=== PATIENT | male | born 1985 | race Two or more races ===

== ENCOUNTER 2019-03-20 23:28 | Emergency (ER) | payer OTHER ==
--- OUTSIDE RECORDS SUMMARY | 2019-03-20 23:49 | XMS REPORT | Continuity of Care Document ---
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 Problems Description No Information Available Social History Type Date Description Comments Sex Unknown Allergies, Adverse Reactions, Alerts Description No Information Available Medications Description No Information Available Immunizations Description No Information Available Vital Signs Description No Information Available Results Description No Information Available Procedures Description No Information Available Medical Devices Description No Information Available Encounters Description No Information Available Assessments Description No Information Available Plan of Treatment Future Appointment(s):04/09/2019 8:15 am - Magaly Howard MD at [facility] Functional Status Description No Information Available Mental Status Description No Information Available Referrals Description No Information Available
[2019-03-21 00:10] LABS: ABS Eosinophils 0.4 10^3/ul (0-0.6); ABS Lymphocytes 1.9 10^3/ul (1.0-4.8); ABS Monocytes 0.6 10^3/ul (0-0.8); ABS Neutrophils 7.6 10^3/ul (1.5-7.7); Eosinophil % 3.8 %; Hematocrit 48 % (42-52); Hemoglobin 16.6 g/dL (14.0-18.0); Lymphocyte % 17.6 %; Mean Corpuscular HGB Conc 34 g/dL (31-36); Mean Corpuscular Hemoglobin 30 pg (27-31); Mean Corpuscular Volume 88 fL (80-94); Mean Platelet Volume 8.3 fL (7.4-10.4); Nucleated Red Blood Cells % 0.1; Platelet Count 209 10^3/uL (150-450); Red Blood Count 5.48 10^6 /uL (4.18-5.48); Red Cell Distribution Width 13 % (10-15); White Blood Count 10.6 10^3/uL (3.5-10.8)
[2019-03-21 00:17] LABS: Urine Appearance Cloudy; Urine Bacteria Absent (Absent); Urine Bilirubin Negative (Negative); Urine Blood 3+ (Negative); Urine Glucose Negative (Negative); Urine Ketones Negative (Negative); Urine Nitrite Negative (Negative); Urine Protein 2+(100 mg/dL) (Negative); Urine Red Blood Cell 3+(>10/hpf) (Absent); Urine Specific Gravity 1.013 (1.010-1.030); Urine Urobilinogen Negative (Negative); Urine White Blood Cell 3+(>20/hpf) (Absent)
[2019-03-21 00:36] LABS: Albumin 4.9 g/dL (3.2-5.2); Calcium 9.8 mg/dL (8.6-10.3); Total Bilirubin 0.7 mg/dL (0.2-1.0)
[2019-03-21 00:42] LABS: Urine Color Red
[2019-03-21 00:42] LABS: Albumin/Globulin Ratio 1.7 (1-3); BUN/Creatinine Ratio 14.6 (8-20); EGFR African American 100.6 (>60); EGFR Non-African American 83.2 (>60); Globulin 2.9 g/dL (2-4); Total Protein 7.8 g/dL (6.4-8.9)
[2019-03-21 01:04] LABS: Potassium 3.8 mmol/L (3.5-5.0)
[2019-03-21] MEDS ORDERED: Sulfamethox/Trimethoprim DS 800/160* TAB PO ONE (01:20)
--- NOTE | 2019-03-21 01:24 | ED ---
Complaint/Male - History of Current Complaint Chief Complaint: EDUrogenitalProblems Time Seen by Provider: 03/21/19 00:52 - Allergies/Home Medications Allergies/Adverse Reactions: Allergies Allergy/AdvReac Type Severity Reaction Status Date / Time No Known Allergies Allergy Verified 03/20/19 23:37 PMH/Surg Hx/FS Hx/Imm Hx Infectious Disease History: No Infectious Disease History: Denies: Traveled Outside the [place] in Last 30 Days - Social History Alcohol Use: None Substance Use Type: Reports: None Smoking Status (MU): Never Smoked Tobacco Physical Exam Vital Signs On Initial Exam: Initial Vitals Temp Pulse Resp BP Pulse Ox 97.9 F 92 16 142/98 99 03/20/19 23:34 03/20/19 23:34 03/20/19 23:34 03/20/19 23:34 03/20/19 23:34 Diagnostics - Vital Signs Vital Signs Temp Pulse Resp BP Pulse Ox 03/20/19 23:34 97.9 F 92 16 142/98 99 - Laboratory Lab Results: Lab Results 03/20/19 03/21/19 03/21/19 Range/Units 23:50 00:05 00:05 WBC 10.6 (3.5-10.8) 10^3/uL RBC 5.48 (4.18-5.48) 10^6 /uL Hgb 16.6 (14.0-18.0) g/dL Hct 48 (42-52) % MCV 88 (80-94) fL MCH 30 (27-31) pg MCHC 34 (31-36) g/dL RDW 13 (10-15) % Plt Count 209 (150-450) 10^3/uL MPV 8.3 (7.4-10.4) fL Neut % (Auto) 72.2 % Lymph % (Auto) 17.6 % [place] % (Auto) 6.1 % Eos % (Auto) 3.8 % Baso % (Auto) 0.3 % Absolute Neuts (auto) 7.6 (1.5-7.7) 10^3/ul Absolute Lymphs (auto) 1.9 (1.0-4.8) 10^3/ul Absolute Monos (auto) 0.6 (0-0.8) 10^3/ul Absolute Eos (auto) 0.4 (0-0.6) 10^3/ul Absolute Basos (auto) 0.0 (0-0.2) 10^3/ul Absolute Nucleated RBC 0.0 10^3/ul Nucleated RBC % 0.1 Sodium 138 (135-145) mmol/L Potassium 3.8 (3.5-5.0) mmol/L Chloride 101 (101-111) mmol/L Carbon Dioxide 32 (22-32) mmol/L Anion Gap 5 (2-11) mmol/L BUN 15 (6-24) mg/dL Creatinine 1.03 (0.67-1.17) mg/dL Est GFR ( Amer) 100.6 (>60) Est GFR (Non-Af Amer) 83.2 (>60) BUN/Creatinine Ratio 14.6 (8-20) Glucose 92 (70-100) mg/dL Calcium 9.8 (8.6-10.3) mg/dL Total Bilirubin 0.70 (0.2-1.0) mg/dL AST 21 (13-39) U/L ALT 28 (7-52) U/L Alkaline Phosphatase 48 (34-104) U/L Total Protein 7.8 (6.4-8.9) g/dL Albumin 4.9 (3.2-5.2) g/dL Globulin 2.9 (2-4) g/dL Albumin/Globulin Ratio 1.7 (1-3) Urine Color Red A Urine Appearance Cloudy Urine pH 8.0 (5-9) Ur Specific [place] 1.013 (1.010-1.030) Urine Protein 2+(100 mg/dl) A (Negative) Urine Ketones Negative (Negative) Urine Blood 3+ A (Negative) Urine Nitrate Negative (Negative) Urine Bilirubin Negative (Negative) Urine Urobilinogen Negative (Negative) Ur Leukocyte Esterase 3+ A (Negative) Urine WBC (Auto) 3+(>20/hpf) A (Absent) Urine RBC (Auto) 3+(>10/hpf) A (Absent) Urine Bacteria Absent (Absent) Urine Glucose Negative (Negative) Result Diagrams: 03/21/19 00:05 03/21/19 00:05 Lab Statement: Any lab studies that have been ordered have been reviewed, and results considered in the medical decision making process. Complaint Male Course/Dx - Differential Dx/Diagnosis Provider Diagnosis: UTI (urinary tract infection)
--- NOTE | 2019-03-21 01:35 | ED ---
GI/ HPI - HPI Summary HPI Summary: This patient is a 33 year old M presenting to [facility] with a chief complaint of blood in urine since 10:30. Patient reports burning during urination, diarrhea, increased frequency of urination. Patient denies discharge, fever, abdominal pain, N/V. Pt has been drinking fluids. - History of Current Complaint Chief Complaint: EDUrogenitalProblems Time Seen by Provider: 03/21/19 00:52 Stated Complaint: BLOOD IN URINE PER PT Hx Obtained From: Patient Onset/Duration: Started Hours Ago, Still Present Timing: Lasting Hours Severity: Moderate Current Severity: Moderate Pain Intensity: 5 Additional Locations for Males: Penis Associated Signs and Symptoms: Positive: Hematuria. Negative: Nausea, Vomiting , Fever, Abdominal Pain - Allergy/Home Medications Allergies/Adverse Reactions: Allergies Allergy/AdvReac Type Severity Reaction Status Date / Time No Known Allergies Allergy Verified 03/20/19 23:37 PMH/Surg Hx/FS Hx/Imm Hx Sensory History: Denies: Hx Legally Blind Opthamlomology History: Denies: Hx Legally Blind EENT History: Denies: Hx Deafness Infectious Disease History: No Infectious Disease History: Denies: Traveled Outside the [place] in Last 30 Days - Family History Known Family History: Negative: Blood Disorder - Social History Occupation: Student Alcohol Use: None Substance Use Type: Reports: None Smoking Status (MU): Never Smoked Tobacco - Additional Comments History Additional Comments: Home Medications Medication Instructions Recorded Confirmed Type Sulfamethox/Trimethoprim DS* 1 tab PO BID #14 tab 03/21/19 Rx [Bactrim DS 800/160 TAB*] Review of Systems Negative: Fever Negative: Abdominal Pain, Vomiting, Nausea Positive: burning, hematuria. Negative: discharge All Other Systems Reviewed And Are Negative: Yes Physical Exam - Summary Physical Exam Summary: General: Well-developed, Well-nourished male. No acute distress. HEENT: Normocephalic, Atraumatic. Eyes: Conjuctiva normal, PERRL. Ears: TMs within normal limits. Nares: (-) discharge, (-) erythema. Oropharynx: Clear, mucous membranes moist, (-) exudates. Neck: Soft, FROM, (-) lymphadenopathy, (-) thyromegaly, (-) JVD. Cardiovascular: Normal sinus rhythm, (-) murmur. Lungs: Clear to auscultation bilaterally (-) wheezes, (-) rales, (-) rhonchi. Abdomen: Soft, non-tender, non-distended, (-) organomegaly, normal bowel sounds. Back: (-) CVA tenderness Extremities: No edema. Skin: Warm, dry, Erythematous plaques on elbows and knuckles. Neuro: Alert and oriented x3, no focal deficits. Psychiatric: Mood normal, affect normal. Triage Information Reviewed: Yes Vital Signs On Initial Exam: Initial Vitals Temp Pulse Resp BP Pulse Ox 97.9 F 92 16 142/98 99 03/20/19 23:34 03/20/19 23:34 03/20/19 23:34 03/20/19 23:34 03/20/19 23:34 Vital Signs Reviewed: Yes Procedures - Sedation Patient Received Moderate/Deep Sedation with Procedure: No Diagnostics - Vital Signs Vital Signs Temp Pulse Resp BP Pulse Ox 03/20/19 23:34 97.9 F 92 16 142/98 99 - Laboratory Lab Results: Lab Results 03/20/19 03/21/19 03/21/19 Range/Units 23:50 00:05 00:05 WBC 10.6 (3.5-10.8) 10^3/uL RBC 5.48 (4.18-5.48) 10^6 /uL Hgb 16.6 (14.0-18.0) g/dL Hct 48 (42-52) % MCV 88 (80-94) fL MCH 30 (27-31) pg MCHC 34 (31-36) g/dL RDW 13 (10-15) % Plt Count 209 (150-450) 10^3/uL MPV 8.3 (7.4-10.4) fL Neut % (Auto) 72.2 % Lymph % (Auto) 17.6 % [place] % (Auto) 6.1 % Eos % (Auto) 3.8 % Baso % (Auto) 0.3 % Absolute Neuts (auto) 7.6 (1.5-7.7) 10^3/ul Absolute Lymphs (auto) 1.9 (1.0-4.8) 10^3/ul Absolute Monos (auto) 0.6 (0-0.8) 10^3/ul Absolute Eos (auto) 0.4 (0-0.6) 10^3/ul Absolute Basos (auto) 0.0 (0-0.2) 10^3/ul Absolute Nucleated RBC 0.0 10^3/ul Nucleated RBC % 0.1 Sodium 138 (135-145) mmol/L Potassium 3.8 (3.5-5.0) mmol/L Chloride 101 (101-111) mmol/L Carbon Dioxide 32 (22-32) mmol/L Anion Gap 5 (2-11) mmol/L BUN 15 (6-24) mg/dL Creatinine 1.03 (0.67-1.17) mg/dL Est GFR ( Amer) 100.6 (>60) Est GFR (Non-Af Amer) 83.2 (>60) BUN/Creatinine Ratio 14.6 (8-20) Glucose 92 (70-100) mg/dL Calcium 9.8 (8.6-10.3) mg/dL Total Bilirubin 0.70 (0.2-1.0) mg/dL AST 21 (13-39) U/L ALT 28 (7-52) U/L Alkaline Phosphatase 48 (34-104) U/L Total Protein 7.8 (6.4-8.9) g/dL Albumin 4.9 (3.2-5.2) g/dL Globulin 2.9 (2-4) g/dL Albumin/Globulin Ratio 1.7 (1-3) Urine Color Red A Urine Appearance Cloudy Urine pH 8.0 (5-9) Ur Specific [place] 1.013 (1.010-1.030) Urine Protein 2+(100 mg/dl) A (Negative) Urine Ketones Negative (Negative) Urine Blood 3+ A (Negative) Urine Nitrate Negative (Negative) Urine Bilirubin Negative (Negative) Urine Urobilinogen Negative (Negative) Ur Leukocyte Esterase 3+ A (Negative) Urine WBC (Auto) 3+(>20/hpf) A (Absent) Urine RBC (Auto) 3+(>10/hpf) A (Absent) Urine Bacteria Absent (Absent) Urine Glucose Negative (Negative) Result Diagrams: 03/21/19 00:05 03/21/19 00:05 Lab Statement: Any lab studies that have been ordered have been reviewed, and results considered in the medical decision making process. Re-Evaluation - Re-Evaluation First Eval Comment: Discussed results and plan of care with pt. GIGU Course/Dx - Course Course Of Treatment: 33 year old M presenting with hematuria that began 1 hour prior to arrival. He denies any acute illness, no fever, no significant abdominal pain. Some increased frequency of urination. Urine demonstrate 3+WBC, in addition to blood. Pt started on Bactrim, and advised to take plenty of fluids. Follow up with PCP for recheck, and follow up sooner for any worsening symptoms. - Diagnoses Provider Diagnoses: UTI (urinary tract infection) Discharge ED - Sign-Out/Discharge Documenting (check all that apply): Patient Departure - Discharge - Discharge Plan Condition: Stable Disposition: HOME Prescriptions: Sulfamethox/Trimethoprim DS* [Bactrim DS 800/160 TAB*] 1 tab PO BID #14 tab Referrals: [facility] Ent Provider,[facility] D [[id number], APPLICATION, OTHER] - Additional Instructions: as tolerated - Billing Disposition and Condition Condition: STABLE Disposition: Home - Attestation Statements Document Initiated by Scribe: Yes Documenting Scribe: Lidia Crooks Provider For Whom Akbare is Documenting (Include Credential): Dr. Shaye Orr MD Scribe Attestation: ILidia, scribed for Dr. Shaye Orr MD on 03/21/19 at 0629. Scribe Documentation Reviewed: Yes Provider Attestation: The documentation as recorded by the Lidia fisher accurately reflects the service I personally performed and the decisions made by me, Dr. Shaye Orr MD Status of Scribe Document: Viewed
[2019-03-21 01:41] VITALS: BP 149/105
--- NOTE | 2019-03-23 06:47 | ED ---
Imaging and Labs Follow Up Follow Up Type: Labs/Cultures Labs/Culture Result: Preliminary urine culture shows greater than 100,000 Escherichia coli. Patient was treated with Bactrim which is presumed effectiveness for treatment. Awaiting sensitivity report. Patient Communication/Plan: Waiting sensitivity report. Patient assumed to be treated appropriately. Nothing further at this time. Provider Diagnoses: UTI (urinary tract infection)
== END 2019-03-21 01:40 | disposition home or self-care (01) ==
LOC: ED 23:28
DX: N39.0 Urinary tract infection, site not specified (principal); R31.9 Hematuria, unspecified
CPT/HCPCS: 36415; 80053; 81003; 81015; 85025; 87077; 87086; 87186; 99282; A9270-GY